=== PATIENT | male | born 1970 | race Caucasian/White ===

== ENCOUNTER 2023-04-17 19:41 | Emergency (ER) | payer OTHER, SELFPAY ==
[2023-04-17 19:46] VITALS: BP 121/89
--- NOTE | 2023-04-17 19:51 | ED.GENMED ---
History of Present Illness
General
Chief Complaint: Crisis Evaluation
Source: patient
Exam Limitations: none
Time Seen by Provider: 04/17/23 19:44
History of Present Illness
History of Present Illness:
See MDM
Past History
Past History
ED Past Medical History: None
ED Past Surgical History: None
Social History
Tobacco: Non-smoker
Alcohol: None
Phy Exam
Physical Exam
Physical Exam:
See MDM
Course
Vital Signs
Initial and Last Documented VS:
Initial Vital Signs
Temp Pulse Resp BP Pulse Ox
98.8 F 117 18 121/89 98
04/17/23 19:46 04/17/23 19:46 04/17/23 19:46 04/17/23 19:46 04/17/23 19:46
Last Documented Vital Signs
Temp Pulse Resp BP Pulse Ox
98.8 F 117 18 121/89 98
04/17/23 19:46 04/17/23 19:46 04/17/23 19:46 04/17/23 19:46 04/17/23 19:46
MDM/Problems Addressed
Differential Diagnosis Includes:
HPI and MDM Narrative:
53-year-old male presenting for evaluation of medical clearance. Patient was placed on a 302 for suicidal thoughts. Patient states he was backing up photos to [employer]. Some of his photos got flag from [employer] for inappropriate pictures in
pediatric population. This then sparked child welfare group that contacted the police. After hearing patient was going to be arrested for child sonography charges, patient indicated that he wanted to kill himself. He does acknowledge that he made
the statements.
Physical exam
General: non-toxic
HEENT: protecting airway
Neck: appears supple
CV: No evidence of cyanosis
Resp: No accessory muscle use
Abd: Non-distended
Extremities: No deformities
Neuro: alert
Psych: Depressed affect
Skin: Intact
Problems Addressed including Acute and Chronic Conditions affecting care:
1. Suicidal thought
Acuity: acute
Prognosis: unstable
Details: 302 was petitioned. Telepsych will evaluate and discuss disposition. I discussed benzodiazepines for anxiety but patient declined
Updates
12:05 AM telepsych called. After their encounter, telepsych does not believe patient is in immediate risk to self. 302 rescinded from telepsych standpoint
Differential Diagnosis (but not limited to): Suicidal thoughts, depression, anxiety
Testing considered: Blood work but will wait on telepsych disposition
Drug therapy (if applicable): OTC meds, please see d/c instruction regarding Rx drugs
Amount and/or Complexity of Data Reviewed
Clinical info obtained from: Patient
External data reviewed: N/A
Labs I independently reviewed (but not limited to): N/A
Radiology: N/A
Pulse Ox: not hypoxic
EKG independently reviewed: N/A
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
Critical Care: N/A
Risk of Complication:
Social Determinants of health: Good support with mother
Discussed with other providers: N/A
Escalation of Care includes Admit/Obs: After being observed in the Emergency Department, pt stable for discharge.
Occasional wrong word or 'sound a like' substitutions may have occurred due to the inherent limitations of voice recognition software. Read the chart carefully and recognize, using context, where substitutions have occurred.
*Critical Care Note
Total Time (30-74mins, 75-104mins- exclusive of procedures): Not Applicable
ED Attending Note
-
Portions of this chart may have been created with voice recognition software.� Occasional wrong word or��sound alike� substitutions may have occurred due to the inherent limitations of voice recognition software.
Discharge Plan
Departure
Patient Disposition: Home (Routine Discharge)
Date of Disposition: 04/18/23
Time of Disposition: 00:11
Patient with high blood pressure during this ER visit?: No
Discharge Problem:
Depression
Referrals:
UNKNOWN - PT NOT,INTERVIEWE [Family Provider] -
Activity Restrictions/Additional Instructions:
If you have any thoughts of hurting yourself, please return to the emergency department immediately.
Interventions
Interventions:
*Risk Screen - Suicide Last Done: 04/17/23 19:46
*General Assessment Last Done: 04/17/23 19:46
*Neglect/Abuse Screening Last Done: 04/17/23 19:46
ED-Psychological Assessment Last Done: 04/17/23 20:36
== END 2023-04-18 00:39 | disposition home or self-care (01) ==
LOC: EMR 19:41
PROVIDERS: EMERGENCY PHYSICIAN Student in an Organized Health Care Education/Training Program
DX: F32.A Depression, unspecified (principal)
CPT/HCPCS: 99282